=== PATIENT | male | born 2000 | race Native Hawaiian/Other Pacific Islander ===

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

== ENCOUNTER 2021-01-17 17:38 | Emergency (ER) | payer OTHER ==
[~2021-01-17] VITALS: Ht 167.6 cm; Wt 60.8 kg
[2021-01-17 18:33] LABS: PLATELET COUNT 220 K/uL (142-355)
[2021-01-17 18:42] LABS: POTASSIUM 4.1 mmol/L (3.6-5.2)
[2021-01-17 19:19] VITALS: BP 141/73; TEMP 99.1
== END 2021-01-17 19:19 | disposition home or self-care (01) ==
LOC: ED 17:38
PROVIDERS: Emergency Medicine
DX: R11.2 Nausea with vomiting, unspecified (principal); R19.7 Diarrhea, unspecified; E86.0 Dehydration; K29.60 Other gastritis without bleeding; Z79.2 Long term (current) use of antibiotics; Z03.818 Encounter for observation for suspected exposure to other biological agents ruled out; F17.210 Nicotine dependence, cigarettes, uncomplicated
CPT/HCPCS: 36415; 80053; 80307; 81000; 82150; 83690; 85027; 87502; 87635; 87651; 96360; 96361; 96374; 96375; 99284; J2405; U0003

== ENCOUNTER 2021-02-21 12:56 | Emergency (ER) | payer OTHER ==
[~2021-02-21] VITALS: Ht 167.6 cm; Wt 64.9 kg
[2021-02-21 13:15] VITALS: TEMP 99.2
[2021-02-21 14:22] VITALS: BP 124/78
== END 2021-02-21 14:24 | disposition home or self-care (01) ==
LOC: ED 12:56
DX: N13.2 Hydronephrosis with renal and ureteral calculous obstruction (principal); Z87.442 Personal history of urinary calculi
CPT/HCPCS: 81000; 96374; 99284; J1885

== ENCOUNTER 2021-04-15 11:30 | Emergency (ER) | payer OTHER ==
[~2021-04-15] VITALS: Ht 167.6 cm; Wt 64.9 kg
[2021-04-15 11:40] VITALS: TEMP 98.4
[2021-04-15 13:08] VITALS: BP 122/70
== END 2021-04-15 13:12 | disposition home or self-care (01) ==
LOC: ED 11:30
DX: J40 Bronchitis, not specified as acute or chronic (principal); J06.9 Acute upper respiratory infection, unspecified; F17.210 Nicotine dependence, cigarettes, uncomplicated; Z20.822 Contact with and (suspected) exposure to COVID-19
CPT/HCPCS: 87635; 87651; 99283; U0003

== ENCOUNTER 2021-04-18 23:29 | Emergency (ER) | payer OTHER ==
[~2021-04-18] VITALS: Ht 167.6 cm; Wt 64.9 kg
[2021-04-19 00:12] LABS: PLATELET COUNT 213 K/uL (142-355)
[2021-04-19 07:30] VITALS: BP 118/66; TEMP 97.6
== END 2021-04-19 12:30 | disposition still patient (30) ==
LOC: ED 23:29
PROVIDERS: Family Medicine
DX: F32.89 Other specified depressive episodes (principal); R45.851 Suicidal ideations; F10.20 Alcohol dependence, uncomplicated; Y90.6 Blood alcohol level of 120-199 mg/100 ml
CPT/HCPCS: 36415; 80053; 80307; 80320; 81000; 85027; 99285

== ENCOUNTER 2021-07-06 10:11 | Emergency (ER) | payer OTHER ==
[~2021-07-06] VITALS: Ht 167.6 cm; Wt 64.9 kg
[2021-07-06 12:13] VITALS: BP 122/75; TEMP 98.3
== END 2021-07-06 12:13 | disposition home or self-care (01) ==
LOC: ED 10:11
DX: B34.9 Viral infection, unspecified (principal); Z20.822 Contact with and (suspected) exposure to COVID-19
CPT/HCPCS: 87502; 87635; 93005; 99283; U0003

== ENCOUNTER 2021-07-20 12:54 | Emergency (ER) | payer OTHER ==
[~2021-07-20] VITALS: Ht 167.6 cm; Wt 64.9 kg
[2021-07-20 13:07] VITALS: BP 124/77; TEMP 97.7
== END 2021-07-20 20:26 | disposition home or self-care (01) ==
LOC: ED 12:54
DX: J06.9 Acute upper respiratory infection, unspecified (principal); U07.1 COVID-19; F17.220 Nicotine dependence, chewing tobacco, uncomplicated
CPT/HCPCS: 87635; 87651; 99283; J2270; J2405; U0003

== ENCOUNTER 2022-04-05 13:10 | Emergency (ER) | payer OTHER ==
[~2022-04-05] VITALS: Ht 167.6 cm; Wt 64.9 kg
[2022-04-05 13:10] VITALS: TEMP 98.8
[2022-04-05 14:13] LABS: PLATELET COUNT 226 K/uL (142-355)
[2022-04-05 14:16] LABS: POTASSIUM 4.3 mmol/L (3.6-5.2)
[2022-04-05 15:30] VITALS: BP 111/72
== END 2022-04-05 15:35 | disposition home or self-care (01) ==
LOC: ED 13:10
PROVIDERS: Hospitalist
DX: K52.89 Other specified noninfective gastroenteritis and colitis (principal); R11.2 Nausea with vomiting, unspecified; R19.7 Diarrhea, unspecified
CPT/HCPCS: 36415; 80053; 81000; 83690; 85027; 96360; 96374; 96375; 99284; J1885; J2405

== ENCOUNTER 2022-05-20 15:48 | Emergency (ER) | payer OTHER ==
[~2022-05-20] VITALS: Ht 167.6 cm; Wt 57.7 kg
[2022-05-20 15:56] VITALS: BP 131/91; TEMP 98.3
[2022-05-20 17:01] LABS: PLATELET COUNT 230 K/uL (142-355)
[2022-05-20 17:13] LABS: POTASSIUM 3.3 mmol/L (3.6-5.2)
== END 2022-05-20 17:48 | disposition left against medical advice (07) ==
LOC: ED 15:48
PROVIDERS: Emergency Medicine Emergency Medical Services
DX: E86.0 Dehydration (principal); Z53.29 Procedure and treatment not carried out because of patient's decision for other reasons
CPT/HCPCS: 36415; 80048; 80307; 81002; 83735; 85027; 87651; 96360; 99284

== ENCOUNTER 2022-06-18 13:53 | Emergency (ER) | payer OTHER ==
[~2022-06-18] VITALS: Ht 167.6 cm; Wt 57.6 kg
[2022-06-18 13:55] VITALS: BP 132/77; TEMP 98.4
== END 2022-06-18 14:30 | disposition home or self-care (01) ==
LOC: ED 13:53
DX: T65.891A Toxic effect of other specified substances, accidental (unintentional), initial encounter (principal); H10.212 Acute toxic conjunctivitis, left eye; X58.XXXA Exposure to other specified factors, initial encounter; Y92.89 Other specified places as the place of occurrence of the external cause
CPT/HCPCS: 99282

== ENCOUNTER 2022-07-04 13:46 | Emergency (ER) | payer OTHER ==
[~2022-07-04] VITALS: Ht 167.6 cm; Wt 57.6 kg
[2022-07-04 14:04] VITALS: BP 116/50; TEMP 97.1
== END 2022-07-04 15:01 | disposition home or self-care (01) ==
LOC: ED 13:46
DX: J06.9 Acute upper respiratory infection, unspecified (principal); R50.9 Fever, unspecified; Z20.822 Contact with and (suspected) exposure to COVID-19; F17.210 Nicotine dependence, cigarettes, uncomplicated
CPT/HCPCS: 87502; 87635; 87651; 99283; U0003

== ENCOUNTER 2022-08-15 13:52 | Emergency (ER) | payer OTHER ==
[~2022-08-15] VITALS: Ht 167.6 cm; Wt 64.4 kg
[2022-08-15 13:58] VITALS: BP 119/65; TEMP 97.8
== END 2022-08-15 14:34 | disposition home or self-care (01) ==
LOC: ED 13:52
DX: T24.232A Burn of second degree of left lower leg, initial encounter (principal); T31.0 Burns involving less than 10% of body surface; X18.XXXA Contact with other hot metals, initial encounter; Y92.89 Other specified places as the place of occurrence of the external cause
CPT/HCPCS: 99283

== ENCOUNTER 2023-01-03 10:23 | Emergency (ER) | payer OTHER ==
[~2023-01-03] VITALS: Ht 167.6 cm; Wt 64.9 kg
[2023-01-03 10:28] VITALS: BP 122/76; TEMP 98.3
== END 2023-01-03 11:25 | disposition home or self-care (01) ==
LOC: ED 10:23
DX: I88.8 Other nonspecific lymphadenitis (principal)
CPT/HCPCS: 99282

== ENCOUNTER 2023-04-18 11:43 | Emergency (ER) | payer OTHER ==
[~2023-04-18] VITALS: Ht 167.6 cm; Wt 64.9 kg
[2023-04-18 11:50] VITALS: BP 115/56; TEMP 98.8
[2023-04-18 12:48] LABS: PLATELET COUNT 206 K/uL (142-355)
[2023-04-18 12:57] LABS: POTASSIUM 3.8 mmol/L (3.6-5.2)
== END 2023-04-18 15:30 | disposition left against medical advice (07) ==
LOC: ED 11:43
PROVIDERS: Internal Medicine
DX: R19.7 Diarrhea, unspecified (principal); R10.9 Unspecified abdominal pain; Z53.29 Procedure and treatment not carried out because of patient's decision for other reasons; F17.210 Nicotine dependence, cigarettes, uncomplicated; F10.90 Alcohol use, unspecified, uncomplicated; F12.90 Cannabis use, unspecified, uncomplicated
CPT/HCPCS: 36415; 80053; 80307; 81002; 85027; 99284; Q9963

== ENCOUNTER 2023-04-29 13:33 | Emergency (ER) | payer OTHER ==
[~2023-04-29] VITALS: Ht 167.6 cm; Wt 65.8 kg
[2023-04-29 17:00] VITALS: BP 120/69; TEMP 98.9
== END 2023-04-29 17:00 | disposition home or self-care (01) ==
LOC: ED 13:33
DX: D17.0 Benign lipomatous neoplasm of skin and subcutaneous tissue of head, face and neck (principal); K08.89 Other specified disorders of teeth and supporting structures
CPT/HCPCS: 99282